=== PATIENT | male | born 1970 | race Caucasian/White ===

== ENCOUNTER 2021-03-14 13:09 | Emergency (ER) | payer OTHER ==
[~2021-03-14] VITALS: Ht 177.8 cm; Wt 70.3 kg
[2021-03-14 13:20] VITALS: BP 134/72
== END 2021-03-14 14:46 | disposition left against medical advice (07) ==
LOC: M.ERS 13:09
DX: Z53.21 Procedure and treatment not carried out due to patient leaving prior to being seen by health care provider (principal)

== ENCOUNTER 2021-09-03 08:24 | Emergency (ER) | payer OTHER ==
[~2021-09-03] VITALS: Ht 177.8 cm; Wt 90.7 kg
[2021-09-03] MEDS ORDERED: HYDROCODON-ACE1 EAC7 PO (09:33)
[2021-09-03] MEDS ORDERED: CEPHALEXIN500 MG PO (09:33)
[2021-09-03] MEDS ORDERED: BACTRIM DS TAB1 EACH PO (09:33)
[2021-09-03 09:51] VITALS: BP 126/79
== END 2021-09-03 09:51 ==
LOC: M.ERS 08:24
DX: L02.611 Cutaneous abscess of right foot (principal); L03.115 Cellulitis of right lower limb